=== PATIENT | male | born 1990 | race Caucasian/White ===

== ENCOUNTER 2024-09-10 22:31 | Emergency (ER) | payer OTHER ==
[2024-09-10] MEDS ORDERED: Sodium Chloride 0.9% 10 ML Syringe FLUSH PRN (22:47)
[2024-09-10 22:58] LABS: BASOPHILS ABSOLUTE AUTO 0.1 x10-3/uL (0.0-0.3); BASOPHILS PERCENT AUTO 0.9 % (0.3-3.8); EOSINOPHILS ABSOLUTE AUTO 0.2 x10-3/uL (0.0-0.6); EOSINOPHILS PERCENT AUTO 2.1 % (0.1-6.8); HEMATOCRIT 46.6 % (38.3-50.1); LYMPHOCYTES ABSOLUTE AUTO 3.3 x10-3/uL (0.5-4.5); LYMPHOCYTES PERCENT AUTO 36.7 % (15.8-45.3); MEAN CORPUSCULAR HEMOGLOBIN 30.8 pg (27.0-33.3); MEAN CORPUSCULAR HGB CONC 34.3 g/dL (28.7-35.3); MEAN CORPUSCULAR VOLUME 89.9 fL (80.8-98.7); MEAN PLATELET VOLUME 8.7 fL (6.7-11.0); MONOCYTES ABSOLUTE AUTO 0.8 x10-3/uL (0.0-1.2); MONOCYTES PERCENT AUTO 9.2 % (5.5-15.2); NEUTROPHILS ABSOLUTE AUTO 4.6 x10-3/uL (1.7-6.9); NEUTROPHILS PERCENT AUTO 51.1 % (40.3-71.8); PLATELET COUNT,PLT 283 x10(3)uL (117-477); RED BLOOD CELL COUNT 5.18 x10(6)uL (3.90-5.90); RED CELL DISTRIBUTION WIDTH 14.2 % (12.4-15.0); WHITE BLOOD CELL COUNT,WBC 8.9 x10-3/uL (3.2-10.1)
[2024-09-10 23:02] LABS: BLOOD UREA NITROGEN,BUN 11 mg/dL (7-18); BUN/CREATININE RATIO 9.2 (9-20); CALCIUM 9.1 mg/dL (8.6-10.2); CARBON DIOXIDE,CO2 27 mmol/L (21-32); CHLORIDE,CL 101 mmol/L (100-110); CREATININE 1.2 mg/dL (0.70-1.30); EST CRCL DRUG DOSING (CG) 88.72 mL/min; ESTIMATED GFR 81 mL/min (>60); GLUCOSE RANDOM 96 mg/dL (80-116); POTASSIUM,K 3.3 mmol/L (3.5-5.3); SODIUM,NA 140 mmol/L (135-145)
[2024-09-10 23:16] LABS: ALANINE AMINOTRANSFERASE,ALT 32 U/L (12-36); ALKALINE PHOSPHATASE 71 IU/L (56-112); ASPARTATE AMNIOTRANSFERASE,AST 13 IU/L (5-25); MAGNESIUM 2.1 mg/dL (1.8-2.5)
[2024-09-10] MEDS: Sodium Chloride 0.9% 1,000 ML IV SCH (23:16)
[2024-09-10] MEDS: Nitroglycerin 0.4 MG Tab.SL SL PRN (23:17)
== END 2024-09-11 02:16 | disposition home or self-care (01) ==
LOC: FB.ED 22:31
DX: R07.89 Other chest pain (principal)
CPT/HCPCS: 36415; 71045; 80053; 83735; 84484; 85025; 85379; 93005; 96360; 96361; 99285; A9270; J7030